=== PATIENT | male | born 1985 | race Hispanic/Latino ===

== ENCOUNTER 2022-05-03 11:24 | Emergency (ER) | payer OTHER, SELFPAY | END 2022-05-03 13:05 | disposition home or self-care (01) | LOC: ERS 11:24 | DX: M79.10 Myalgia, unspecified site (principal); V89.2XXA Person injured in unspecified motor-vehicle accident, traffic, initial encounter; Y92.410 Unspecified street and highway as the place of occurrence of the external cause | CPT/HCPCS: 99282 ==

== ENCOUNTER 2024-03-16 16:14 | Emergency (ER) | payer SELFPAY ==
[2024-03-16] MEDS ORDERED: Ketorolac Tromethamine 30 MG (1 mL) VIAL ONE (17:32)
== END 2024-03-16 17:47 | disposition home or self-care (01) ==
LOC: ERS 16:14
DX: S50.01XA Contusion of right elbow, initial encounter (principal); Z55.6 Problems related to health literacy; W19.XXXA Unspecified fall, initial encounter
CPT/HCPCS: 96372; 99283; J1885